=== PATIENT | male | born 1935 | race Asian ===

== ENCOUNTER 2017-09-05 17:06 | Emergency (ER) | payer OTHER ==
[~2017-09-05] VITALS: Ht 167.6 cm; Wt 52.7 kg
[~2017-09-05 17:06] MED LIST: ASPI-825 PO; SIMV10TA6 PO; TERA2CAP4 PO; [UNRECOGNIZED DRUG - REMARK]
[2017-09-05 18:09] LABS: BASOPHILS % (AUTO) 0.1 % (0.0-2.0); EOSINOPHILS % (AUTO) 0.3 % (1.0-6.0); HEMATOCRIT 35.9 % (41-53); HEMOGLOBIN 12.1 g/dL (13.5-17.5); LYMPHOCYTES # (AUTO) 0.5 K/uL (1.0-4.8); LYMPHOCYTES % (AUTO) 6.1 % (22.0-44.0); MEAN CORPUSCULAR HEMOGLOBIN 30.7 pg (26.0-34.0); MEAN CORPUSCULAR HGB CONC 33.8 G/dL (31.0-37.0); MEAN CORPUSCULAR VOLUME 91 fL (80-100); MONOCYTES # (AUTO) 0.4 K/uL (0.1-1.0); MONOCYTES % (AUTO) 4.5 % (2.0-9.0); NEUTROPHILS # (AUTO) 8.1 K/uL (1.8-7.7); PLATELET COUNT (AUTO) 269 K/uL (150-450); RED BLOOD CELL COUNT(AUTO) 3.95 MIL/uL (4.50-5.90); RED CELL DISTRIBUTION WIDTH 13.6 % (11.5-14.5); WHITE BLOOD COUNT (AUTO) 9.1 K/uL (4.5-11.0)
[2017-09-05 18:19] LABS: CALCIUM, TOTAL 9.5 mg/dL (8.8-10.5); CREATININE 1.29 mg/dL (0.60-1.30); POTASSIUM 3.5 mmol/L (3.5-5.1)
[2017-09-05 18:26] LABS: ALBUMIN 3.8 g/dL (3.4-5.0); BILIRUBIN,TOTAL 0.4 mg/dL (0.1-1.0); TOTAL PROTEIN, SERUM 7.7 g/dL (6.4-8.2)
[2017-09-05 18:54] LABS: GLUCOSE, URINE (UA) NEGATIVE (NEGATIVE); KETONES,URINE NEGATIVE (NEGATIVE); LEUKOCYTE ESTERASE ,URINE SMALL (NEGATIVE); OCCULT BLOOD,URINE LARGE (NEGATIVE); PH,URINE 5.5 (5.0-8.0); PROTEIN,URINE NEGATIVE (NEGATIVE)
[2017-09-05 18:58] LABS: ADD UA MICROSCOPIC YES; APPEARANCE,URINE SLIGHTLY CLOUDY (CLEAR)
[2017-09-05 19:01] VITALS: BP 134/78
[2017-09-05 19:05] LABS: RBC,URINE 26-50 /HPF (0-2)
[2017-09-05] MEDS ORDERED: CIPROFLOXACIN HCL 250 MG TABLET PO ONE (19:45)
[2017-09-05] MEDS ORDERED: TAMSULOSIN HCL 0.4 MG CAPSULE PO ONE (19:45)
== END 2017-09-05 20:15 | disposition home or self-care (01) ==
LOC: EMS 17:12
DX: N39.0 Urinary tract infection, site not specified (principal); E78.00 Pure hypercholesterolemia, unspecified; I10 Essential (primary) hypertension
CPT/HCPCS: 51702; 87086; 99284

== ENCOUNTER 2017-10-09 09:48 | Inpatient (IN) | payer OTHER, MEDICAID ==
[~2017-10-09] VITALS: Ht 167.6 cm; Wt 52.9 kg
[~2017-10-09 09:48] MED LIST changes: -[UNRECOGNIZED DRUG - REMARK]
[2017-10-09 11:20] LABS: BASOPHILS # (AUTO) 0.02 K/uL (0.00-0.20); BASOPHILS % (AUTO) 0.2 % (0.0-2.0); EOSINOPHILS # (AUTO) 0.01 K/uL (0.00-0.70); EOSINOPHILS % (AUTO) 0.16 % (1.0-6.0); HEMATOCRIT 37.6 % (41-53); HEMOGLOBIN 12.3 g/dL (13.5-17.5); LYMPHOCYTES # (AUTO) 0.8 K/uL (1.0-4.8); LYMPHOCYTES % (AUTO) 9.7 % (22.0-44.0); MEAN CORPUSCULAR HGB CONC 32.8 G/dL (31.0-37.0); MEAN CORPUSCULAR VOLUME 91 fL (80-100); MONOCYTES # (AUTO) 0.2 K/uL (0.1-1.0); MONOCYTES % (AUTO) 2.3 % (2.0-9.0); NEUTROPHILS # (AUTO) 6.9 K/uL (1.8-7.7); PLATELET COUNT (AUTO) 262 K/uL (150-450); RED BLOOD CELL COUNT(AUTO) 4.12 MIL/uL (4.50-5.90); RED CELL DISTRIBUTION WIDTH 13.8 % (11.5-14.5)
[2017-10-09 11:23] LABS: NEUTROPHILS % (AUTO) 87.6 % (40.0-70.0)
[2017-10-09 11:31] LABS: ANION GAP 10 mmol/L (8-16); CALCIUM, TOTAL 8.9 mg/dL (8.8-10.5); CARBON DIOXIDE 27 mmol/L (22-29); CHLORIDE 94 mmol/L (98-107); GLOMERULAR FILTR. RATE CALC 58 mL/min (>60); GLUCOSE,RANDOM 108 mg/dL (70-110); POTASSIUM 4.4 mmol/L (3.5-5.1); SODIUM SERUM 131 mmol/L (136-145); UREA NITROGEN, BLOOD 22 mg/dL (7-18)
[2017-10-09 11:32] LABS: PROTHROMBIN TIME 10.8 SEC (9.4-11.6)
[2017-10-09 11:38] LABS: ALANINE AMINOTRANSFERASE 64 U/L (12-78); ALBUMIN 3.2 g/dL (3.4-5.0); ALKALINE PHOSPHATASE 81 U/L (46-116); ASPARTATE AMINOTRANSFERASE 58 U/L (15-37); BILIRUBIN,TOTAL 0.9 mg/dL (0.1-1.0); CREATINE KINASE, TOTAL 50 U/L (39-308); TOTAL PROTEIN, SERUM 7.1 g/dL (6.4-8.2)
[2017-10-09 11:45] LABS: B-TYPE NATRIURETIC PEPTIDE 17 pg/mL (0-100)
[2017-10-09 13:16] LABS: LIPASE 430 U/L (73-393)
[2017-10-09 13:30] LABS: APPEARANCE,URINE TURBID (CLEAR); GLUCOSE, URINE (UA) NEGATIVE (NEGATIVE); KETONES,URINE 15 mg/dL (NEGATIVE); LEUKOCYTE ESTERASE ,URINE SMALL (NEGATIVE); NITRATE,URINE NEGATIVE (NEGATIVE); OCCULT BLOOD,URINE NEGATIVE (NEGATIVE); PROTEIN,URINE POS 1+ (NEGATIVE)
[2017-10-09 13:54] LABS: BILIRUBIN,URINE PRELIM. POSITIVE (NEGATIVE)
[2017-10-09 13:57] LABS: RBC,URINE None Seen /HPF (0-2)
[2017-10-09 13:59] LABS: BACTERIA,URINE Moderate /HPF (None Seen)
[2017-10-09 14:00] LABS: CALCIUM OXALATE CRYSTALS,UR Few /LPF (None Seen); TRANSITIONAL EPI CELLS,URINE Rare /LPF (None Seen)
[2017-10-09] MEDS ORDERED: IOVERSOL 320 MG/ML 100 ML VIAL ONE (14:37)
[2017-10-09 14:52] LABS: INFLUENZA TYPE A NEGATIVE FOR TYPE A (NEGATIVE); INFLUENZA TYPE B NEGATIVE FOR TYPE B (NEGATIVE)
[2017-10-09] MEDS ORDERED: 0.9% SODIUM CHLORIDE 10 ML SYRINGE IVP PRN (16:30)
[2017-10-09] MEDS ORDERED: ONDANSETRON HCL 4 MG/2 ML VIAL IVP PRN ×2 (16:30→20:15)
[2017-10-09] MEDS ORDERED: CeFAZolin 1 GM/DEXTROSE 50 ML IV ONE (16:30)
[2017-10-09] MEDS ORDERED: ACETAMINOPHEN 325 MG TABLET PO PRN ×2 (16:30→20:15)
[2017-10-09 19:17] VITALS: BP 144/55
[2017-10-09] MEDS ORDERED: ZOLPIDEM TARTRATE 5 MG TABLET PO PRN (20:15)
[2017-10-09] MEDS ORDERED: SODIUM CHLORIDE 0.9% 1,000 ML IV ONE (20:15)
[2017-10-09] MEDS ORDERED: MAGNESIUM HYDROXIDE SUSPENSION 30 ML UDCUP PO PRN (20:15)
[2017-10-09] MEDS ORDERED: BISACODYL 10 MG RECTAL RECTAL SUPPOSITORY PR PRN (20:15)
[2017-10-09] MEDS: DOCUSATE SODIUM 100 MG CAPSULE PO SCH (21:16)
[2017-10-09] MEDS ORDERED: FINA5TAB41 PO (22:14)
[2017-10-09] MEDS ORDERED: TAMS0.4C32 PO (22:15)
[2017-10-09] MEDS ORDERED: INFLUENZA VIRUS VACCINE QVS 2017-18 (3YR+)/PF 60 MCG/0.5 ML SYRINGE IM ONE (23:45)
[2017-10-10 00:12] VITALS: BP 120/66
[2017-10-10] MEDS: HEPARIN SODIUM,PORCINE 5,000 UNITS/ML VIAL SQ SCH ×3 (00:16→16:00)
[2017-10-10 04:00] VITALS: BP 123/69
[2017-10-10 06:18] LABS: PROTHROMBIN TIME 10.9 SEC (9.4-11.6)
[2017-10-10 07:49] VITALS: BP 134/70
[2017-10-10] MEDS: SIMVASTATIN 10 MG TABLET PO SCH (08:19)
[2017-10-10] MEDS: DOCUSATE SODIUM 100 MG CAPSULE PO SCH ×2 (08:19→21:00)
[2017-10-10] MEDS: PANTOPRAZOLE SODIUM 40 MG DR TABLET PO SCH (08:19)
[2017-10-10 12:00] VITALS: BP_SYST 107; BP_SYST 118; BP_DIAS 54; BP_DIAS 63
[2017-10-10] MEDS ORDERED: SODIUM CHLORIDE 0.9% 0 ML IV ONE (13:52)
[2017-10-10] MEDS ORDERED: RINGERS SOLUTION,LACTATED 1,000 ML IV ONE ×2 (13:52→16:00)
[2017-10-10] MEDS ORDERED: HEPARIN SODIUM 1000 UNITS/NS 0 ML ONE (14:18)
[2017-10-10] MEDS ORDERED: HEPARIN SODIUM 1000 UNITS/NS 500 ML ONE (14:28)
[2017-10-10 17:16] LABS: ABG A-A DIFF O2 25.6 mmHg (10-20.0); ABG BASE EXCESS -7.4 mmol/L (-2.0-3.0); ABG CARBOXYHEMOGLOBIN 0.7 % (0.0-1.5); ABG HCO3 19.3 mmol/L (22.0-26.0); ABG METHEMOGLOBIN 0.2 % (0.0-1.5); ABG OXYGEN CONTENT 15.8 mL/dL (15.0-23.0); ABG OXYGEN SATURATION 97.7 % (95.0-98.0); ABG OXYHEMOGLOBIN 96.8 % (94.0-100.0); ABG PCO2 29 mmHg (35-45); ABG PH 7.402 (7.35-7.450); ABG TOTAL HEMOGLOBIN 11.5 G/dL (12.0-18.0); PO2, ARTERIAL BG 90.3 mmHg (71.0-79.0); SITE, BLOOD GAS ARTERIAL LINE; SOURCE, BLOOD GAS ARTERIAL
[2017-10-10] MEDS ORDERED: CefoTEtan DISOD 2 GM/DEXTROSE 50 ML IV ONE (20:15)
[2017-10-10] MEDS ORDERED: PROPOFOL 1000 MG/ISO-OSM 100 ML IV ONE (22:37)
[2017-10-10] MEDS ORDERED: SODIUM CHLORIDE 0.9% 250 ML IV ONE (22:38)
[2017-10-10] MEDS ORDERED: SODIUM CHLORIDE 0.9% 250 ML IV SCH (22:45)
[2017-10-10] MEDS: SODIUM CHLORIDE 0.9% 1,000 ML IV SCH (22:53)
[2017-10-10] MEDS ORDERED: ONDANSETRON HCL 4 MG/2 ML VIAL IVP PRN (23:15)
[2017-10-10] MEDS ORDERED: HYDROmorphone 2 MG/ML SYRINGE IVP PRN (23:15)
[2017-10-10 23:36] LABS: ABG A-A DIFF O2 65.1 mmHg (10-20.0); ABG BASE EXCESS -9.5 mmol/L (-2.0-3.0); ABG CARBOXYHEMOGLOBIN 0.8 % (0.0-1.5); ABG HCO3 17.9 mmol/L (22.0-26.0); ABG METHEMOGLOBIN 0.3 % (0.0-1.5); ABG OXYGEN CONTENT 18.1 mL/dL (15.0-23.0); ABG OXYGEN SATURATION 99.9 % (95.0-98.0); ABG OXYHEMOGLOBIN 98.8 % (94.0-100.0); ABG PCO2 30 mmHg (35-45); ABG TOTAL HEMOGLOBIN 12.6 G/dL (12.0-18.0); PO2, ARTERIAL BG 257.9 mmHg (71.0-79.0); SOURCE, BLOOD GAS ARTERIAL; TEMPERATURE, FAHRENHEIT, BG 98.6 FAHREN (96.0-98.6)
[2017-10-10 23:37] LABS: O2 DEVICE,BLOOD GAS VENTILATOR (ROOM AIR); PEEP,BG 5 cm H2O; SITE, BLOOD GAS ARTERIAL LINE; VT, ABG 500 ml
[2017-10-11] VITALS (8 sets, daily range): BP systolic 108–152; BP diastolic 52–94
[2017-10-11] MEDS: ACETAMINOPHEN 650 MG/ISO-OSM 65 ML IV SCH ×3 (00:11→14:53)
[2017-10-11] MEDS: HEPARIN SODIUM,PORCINE 5,000 UNITS/ML VIAL SQ SCH ×3 (00:12→15:00)
[2017-10-11] MEDS: PROPOFOL 1000 MG/ISO-OSM 100 ML IV PRN ×2 (00:48→07:14)
[2017-10-11 05:20] LABS: EOSINOPHILS % (AUTO) 0.03 % (1.0-6.0); HEMATOCRIT 36.6 % (41-53); LYMPHOCYTES # (AUTO) 0.4 K/uL (1.0-4.8); LYMPHOCYTES % (AUTO) 3.1 % (22.0-44.0); MEAN CORPUSCULAR HEMOGLOBIN 30.2 pg (26.0-34.0); MEAN CORPUSCULAR HGB CONC 32.8 G/dL (31.0-37.0); MEAN CORPUSCULAR VOLUME 92 fL (80-100); MONOCYTES # (AUTO) 0.3 K/uL (0.1-1.0); MONOCYTES % (AUTO) 2.3 % (2.0-9.0); NEUTROPHILS # (AUTO) 13.5 K/uL (1.8-7.7); PLATELET COUNT (AUTO) 280 K/uL (150-450); RED BLOOD CELL COUNT(AUTO) 3.97 MIL/uL (4.50-5.90); RED CELL DISTRIBUTION WIDTH 14.2 % (11.5-14.5)
[2017-10-11 05:22] LABS: NEUTROPHILS % (AUTO) 94.5 % (40.0-70.0)
[2017-10-11] MEDS ORDERED: ONDANSETRON HCL 4 MG/2 ML VIAL IVP ONE (05:29)
[2017-10-11] MEDS ORDERED: METOCLOPRAMIDE HCL 5 MG/ML 2 ML VIAL IVP ONE (05:29)
[2017-10-11] MEDS ORDERED: PROPOFOL 1% 20 ML VIAL IVP ONE (05:29)
[2017-10-11] MEDS ORDERED: ROCURONIUM BROMIDE 10 MG/ML 5 ML VIAL IVP ONE (05:29)
[2017-10-11] MEDS ORDERED: CefoTEtan DISODIUM 1 GM/VIAL IVP ONE (05:29)
[2017-10-11] MEDS ORDERED: DEXAMETHASONE SOD PHOS 4 MG/ML VIAL IVP ONE (05:29)
[2017-10-11] MEDS ORDERED: FentaNYL CITRATE-PF 100 MCG/2 ML VIAL IVP ONE (05:29)
[2017-10-11] MEDS ORDERED: MIDAZOLAM HCL 2 MG/2 ML VIAL IVP ONE (05:29)
[2017-10-11] MEDS ORDERED: SUCCINYLCHOLINE CHLORIDE 20 MG/ML 10 ML VIAL IVP ONE (05:29)
[2017-10-11] MEDS ORDERED: LIDOCAINE HCL/PF 2% 5 ML VIAL INJ ONE (05:29)
[2017-10-11 05:31] LABS: ANION GAP 16 mmol/L (8-16); CALCIUM, TOTAL 7.9 mg/dL (8.8-10.5); CARBON DIOXIDE 17 mmol/L (22-29); CHLORIDE 101 mmol/L (98-107); CREATININE 0.84 mg/dL (0.60-1.30); GLOMERULAR FILTR. RATE CALC > 60 mL/min (>60); GLUCOSE,RANDOM 112 mg/dL (70-110); POTASSIUM 4.3 mmol/L (3.5-5.1); SODIUM SERUM 134 mmol/L (136-145); UREA NITROGEN, BLOOD 15 mg/dL (7-18)
[2017-10-11] MEDS: SODIUM CHLORIDE 0.9% 1,000 ML IV SCH ×2 (07:16→19:37)
[2017-10-11] MEDS ORDERED: HEPARIN SODIUM,PORCINE 5,000 UNITS/ML VIAL SQ SCH (08:00)
[2017-10-11] MEDS: SIMVASTATIN 10 MG TABLET PO SCH (08:03)
[2017-10-11] MEDS: DOCUSATE SODIUM 100 MG CAPSULE PO SCH ×2 (08:03→19:36)
[2017-10-11] MEDS: PANTOPRAZOLE SODIUM 40 MG DR TABLET PO SCH (08:03)
[2017-10-11 15:41] LABS: ABG A-A DIFF O2 63.3 mmHg (10-20.0); ABG BASE EXCESS -8.5 mmol/L (-2.0-3.0); ABG CARBOXYHEMOGLOBIN 0.6 % (0.0-1.5); ABG HCO3 18.6 mmol/L (22.0-26.0); ABG METHEMOGLOBIN 0.3 % (0.0-1.5); ABG OXYGEN CONTENT 16.8 mL/dL (15.0-23.0); ABG OXYGEN SATURATION 99.6 % (95.0-98.0); ABG OXYHEMOGLOBIN 98.7 % (94.0-100.0); ABG PCO2 29 mmHg (35-45); ABG PH 7.373 (7.35-7.450); ABG TOTAL HEMOGLOBIN 11.8 G/dL (12.0-18.0); PO2, ARTERIAL BG 188.1 mmHg (71.0-79.0); SOURCE, BLOOD GAS ARTERIAL; TEMPERATURE, FAHRENHEIT, BG 98.6 FAHREN (96.0-98.6)
[2017-10-11 15:42] LABS: O2 DEVICE,BLOOD GAS VENTILATOR (ROOM AIR); SITE, BLOOD GAS ARTERIAL LINE; VENT MODE, BG SPONTANEOUS (ROOM AIR)
[2017-10-11 15:43] LABS: CPAP, BG 0 cm H2O; PEEP,BG 0 cm H2O; PRESSURE SUPPORT, BG 8 cm H2O; SPONTANEOUS VT, BG 486 ml
[2017-10-12] MEDS: HEPARIN SODIUM,PORCINE 5,000 UNITS/ML VIAL SQ SCH ×3 (02:13→17:05)
[2017-10-12] MEDS: MORPHINE SULFATE 2 MG/ML SYRINGE IVP PRN (03:51)
[2017-10-12 04:34] VITALS: BP 122/67
[2017-10-12 08:07] VITALS: BP 142/65
[2017-10-12 08:30] LABS: B-TYPE NATRIURETIC PEPTIDE 21 pg/mL (0-100)
[2017-10-12 08:39] LABS: ANION GAP 7 mmol/L (8-16); CALCIUM, TOTAL 7.8 mg/dL (8.8-10.5); CARBON DIOXIDE 25 mmol/L (22-29); CHLORIDE 105 mmol/L (98-107); CREATINE KINASE MB 1.9 ng/mL (0-5); CREATINE KINASE, TOTAL 101 U/L (39-308); CREATININE 0.89 mg/dL (0.60-1.30); GLOMERULAR FILTR. RATE CALC > 60 mL/min (>60); GLUCOSE,RANDOM 104 mg/dL (70-110); POTASSIUM 4.1 mmol/L (3.5-5.1); SODIUM SERUM 137 mmol/L (136-145); UREA NITROGEN, BLOOD 16 mg/dL (7-18)
[2017-10-12] MEDS: DOCUSATE SODIUM 100 MG CAPSULE PO SCH ×2 (08:39→21:00)
[2017-10-12] MEDS: PANTOPRAZOLE SODIUM 40 MG DR TABLET PO SCH (08:39)
[2017-10-12] MEDS: SIMVASTATIN 10 MG TABLET PO SCH (08:39)
[2017-10-12] MEDS: SODIUM CHLORIDE 0.9% 1,000 ML IV SCH (10:55)
[2017-10-12 11:56] VITALS: BP 120/61
[2017-10-12 15:47] VITALS: BP 127/72
[2017-10-12 19:18] VITALS: BP 133/72
[2017-10-13] VITALS (7 sets, daily range): BP systolic 118–133; BP diastolic 65–73
[2017-10-13] MEDS: HEPARIN SODIUM,PORCINE 5,000 UNITS/ML VIAL SQ SCH ×3 (00:50→17:10)
[2017-10-13] MEDS: SODIUM CHLORIDE 0.9% 1,000 ML IV SCH ×2 (02:43→17:10)
[2017-10-13] MEDS: DOCUSATE SODIUM 100 MG CAPSULE PO SCH (09:25)
[2017-10-13] MEDS: SIMVASTATIN 10 MG TABLET PO SCH (09:25)
[2017-10-13] MEDS: PANTOPRAZOLE SODIUM 40 MG DR TABLET PO SCH (09:25)
[2017-10-13 09:26] LABS: EOSINOPHILS # (AUTO) 0.03 K/uL (0.00-0.70); EOSINOPHILS % (AUTO) 0.19 % (1.0-6.0); HEMOGLOBIN 9.4 g/dL (13.5-17.5); LYMPHOCYTES # (AUTO) 3.5 K/uL (1.0-4.8); LYMPHOCYTES % (AUTO) 26.2 % (22.0-44.0); MEAN CORPUSCULAR HEMOGLOBIN 30.2 pg (26.0-34.0); MEAN CORPUSCULAR HGB CONC 33.4 G/dL (31.0-37.0); MEAN CORPUSCULAR VOLUME 91 fL (80-100); MONOCYTES # (AUTO) 0.3 K/uL (0.1-1.0); MONOCYTES % (AUTO) 2.6 % (2.0-9.0); NEUTROPHILS # (AUTO) 9.5 K/uL (1.8-7.7); NEUTROPHILS % (AUTO) 71.1 % (40.0-70.0); PLATELET COUNT (AUTO) 201 K/uL (150-450); RED BLOOD CELL COUNT(AUTO) 3.09 MIL/uL (4.50-5.90); RED CELL DISTRIBUTION WIDTH 14.6 % (11.5-14.5)
[2017-10-13 09:39] LABS: ANION GAP 8 mmol/L (8-16); CALCIUM, TOTAL 7.8 mg/dL (8.8-10.5); CARBON DIOXIDE 25 mmol/L (22-29); CHLORIDE 105 mmol/L (98-107); CREATININE 0.62 mg/dL (0.60-1.30); GLOMERULAR FILTR. RATE CALC > 60 mL/min (>60); GLUCOSE,RANDOM 84 mg/dL (70-110); POTASSIUM 3.5 mmol/L (3.5-5.1); SODIUM SERUM 138 mmol/L (136-145); UREA NITROGEN, BLOOD 11 mg/dL (7-18)
[2017-10-14] MEDS: DOCUSATE SODIUM 100 MG CAPSULE PO SCH ×3 (00:26→21:15)
[2017-10-14] MEDS: HEPARIN SODIUM,PORCINE 5,000 UNITS/ML VIAL SQ SCH ×3 (00:26→16:09)
[2017-10-14 03:27] VITALS: BP 136/75
[2017-10-14] MEDS: HYDROCODONE/ACETAMINOPHEN 5-325 MG TABLET PO PRN (04:08)
[2017-10-14 07:32] LABS: CARBON DIOXIDE 27 mmol/L (22-29); CREATININE 0.67 mg/dL (0.60-1.30); GLOMERULAR FILTR. RATE CALC > 60 mL/min (>60); GLUCOSE,RANDOM 83 mg/dL (70-110); UREA NITROGEN, BLOOD 11 mg/dL (7-18)
[2017-10-14 07:44] LABS: ANION GAP 9 mmol/L (8-16); CHLORIDE 104 mmol/L (98-107); POTASSIUM 3.4 mmol/L (3.5-5.1); SODIUM SERUM 140 mmol/L (136-145)
[2017-10-14 07:50] LABS: EOSINOPHILS % (AUTO) 0.2 % (1.0-6.0); HEMATOCRIT 27.1 % (41-53); HEMOGLOBIN 9.1 g/dL (13.5-17.5); LYMPHOCYTES # (AUTO) 0.5 K/uL (1.0-4.8); LYMPHOCYTES % (AUTO) 3.5 % (22.0-44.0); MEAN CORPUSCULAR HEMOGLOBIN 30.3 pg (26.0-34.0); MEAN CORPUSCULAR HGB CONC 33.4 G/dL (31.0-37.0); MEAN CORPUSCULAR VOLUME 91 fL (80-100); MONOCYTES # (AUTO) 0.6 K/uL (0.1-1.0); PLATELET COUNT (AUTO) 166 K/uL (150-450); RED BLOOD CELL COUNT(AUTO) 2.99 MIL/uL (4.50-5.90); RED CELL DISTRIBUTION WIDTH 14.8 % (11.5-14.5)
[2017-10-14 08:03] LABS: NEUTROPHILS % (AUTO) 92.3 % (40.0-70.0)
[2017-10-14 08:10] VITALS: BP 107/65
[2017-10-14] MEDS: SODIUM CHLORIDE 0.9% 1,000 ML IV SCH (08:32)
[2017-10-14] MEDS: MORPHINE SULFATE 2 MG/ML SYRINGE IVP PRN (08:32)
[2017-10-14] MEDS: SIMVASTATIN 10 MG TABLET PO SCH (08:42)
[2017-10-14] MEDS: PANTOPRAZOLE SODIUM 40 MG DR TABLET PO SCH (08:42)
[2017-10-14 09:32] LABS: B-TYPE NATRIURETIC PEPTIDE 49 pg/mL (0-100)
[2017-10-14] MEDS ORDERED: POTASSIUM CHLORIDE 20 MEQ ER TABLET PO ONE (10:30)
[2017-10-14 11:30] VITALS: BP 109/67
[2017-10-14] MEDS: PIPERACILLIN/TAZO 3.375 GM/D5W 50 ML IV SCH ×2 (12:44→16:09)
[2017-10-14 15:29] VITALS: BP 118/68
[2017-10-14 15:29] LABS: APPEARANCE,URINE CLEAR (CLEAR); GLUCOSE, URINE (UA) NEGATIVE (NEGATIVE); KETONES,URINE >=80 mg/dL (NEGATIVE); LEUKOCYTE ESTERASE ,URINE NEGATIVE (NEGATIVE); NITRATE,URINE NEGATIVE (NEGATIVE); OCCULT BLOOD,URINE SMALL (NEGATIVE); PROTEIN,URINE POS 1+ (NEGATIVE); UROBILINOGEN,URINE 0.2 mg/dL (<=1.0)
[2017-10-14 15:38] LABS: BILIRUBIN,URINE PRELIM. POSITIVE (NEGATIVE)
[2017-10-14 17:35] LABS: BACTERIA,URINE Rare /HPF (None Seen); SQUAMOUS EPITHELIAL CELL,UR Few /LPF (None Seen); WBC,URINE 0-2 /HPF (0-5)
[2017-10-14 19:32] VITALS: BP 109/63
[2017-10-14 22:35] VITALS: BP 112/61
[2017-10-15] MEDS: PIPERACILLIN/TAZO 3.375 GM/D5W 50 ML IV SCH ×4 (01:06→18:09)
[2017-10-15] MEDS: HEPARIN SODIUM,PORCINE 5,000 UNITS/ML VIAL SQ SCH ×3 (01:07→16:55)
[2017-10-15] MEDS: HYDROCODONE/ACETAMINOPHEN 5-325 MG TABLET PO PRN (01:18)
[2017-10-15 04:37] VITALS: BP 110/62
[2017-10-15] MEDS: SODIUM CHLORIDE 0.9% 1,000 ML IV SCH ×2 (05:28→21:41)
[2017-10-15 07:47] VITALS: BP 114/62
[2017-10-15] MEDS: DOCUSATE SODIUM 100 MG CAPSULE PO SCH ×2 (07:56→21:41)
[2017-10-15] MEDS: PANTOPRAZOLE SODIUM 40 MG DR TABLET PO SCH (07:57)
[2017-10-15] MEDS: SIMVASTATIN 10 MG TABLET PO SCH (07:57)
[2017-10-15 10:31] LABS: BASOPHILS # (AUTO) 0.13 K/uL (0.00-0.20); BASOPHILS % (AUTO) 1.1 % (0.0-2.0); EOSINOPHILS # (AUTO) 0.02 K/uL (0.00-0.70); EOSINOPHILS % (AUTO) 0.14 % (1.0-6.0); HEMATOCRIT 25.1 % (41-53); HEMOGLOBIN 8.4 g/dL (13.5-17.5); LYMPHOCYTES # (AUTO) 0.6 K/uL (1.0-4.8); MEAN CORPUSCULAR HEMOGLOBIN 30.2 pg (26.0-34.0); MEAN CORPUSCULAR HGB CONC 33.3 G/dL (31.0-37.0); MEAN CORPUSCULAR VOLUME 91 fL (80-100); MONOCYTES # (AUTO) 0.5 K/uL (0.1-1.0); MONOCYTES % (AUTO) 4.2 % (2.0-9.0); NEUTROPHILS # (AUTO) 10.9 K/uL (1.8-7.7); PLATELET COUNT (AUTO) 262 K/uL (150-450); RED BLOOD CELL COUNT(AUTO) 2.77 MIL/uL (4.50-5.90); RED CELL DISTRIBUTION WIDTH 14.6 % (11.5-14.5)
[2017-10-15 10:36] LABS: NEUTROPHILS % (AUTO) 89.6 % (40.0-70.0)
[2017-10-15 11:20] VITALS: BP 111/61
[2017-10-15 16:33] VITALS: BP 114/67
[2017-10-15 18:12] LABS: GLUCOMETER DEV NAME(LOC) 6N 1E; GLUCOSE,POINT OF CARE 121 MG/DL (70-110)
[2017-10-15 19:40] VITALS: BP 115/66
[2017-10-16 00:42] VITALS: BP 130/64
[2017-10-16] MEDS: PIPERACILLIN/TAZO 3.375 GM/D5W 50 ML IV SCH ×5 (01:07→23:19)
[2017-10-16] MEDS: HEPARIN SODIUM,PORCINE 5,000 UNITS/ML VIAL SQ SCH ×4 (01:07→23:24)
[2017-10-16 04:43] VITALS: BP 131/72
[2017-10-16 07:57] LABS: BASOPHILS % (AUTO) 0.1 % (0.0-2.0); EOSINOPHILS % (AUTO) 0.1 % (1.0-6.0); HEMATOCRIT 24.4 % (41-53); HEMOGLOBIN 8.1 g/dL (13.5-17.5); LYMPHOCYTES # (AUTO) 0.8 K/uL (1.0-4.8); LYMPHOCYTES % (AUTO) 4.8 % (22.0-44.0); MEAN CORPUSCULAR HEMOGLOBIN 30.1 pg (26.0-34.0); MEAN CORPUSCULAR HGB CONC 33.3 G/dL (31.0-37.0); MEAN CORPUSCULAR VOLUME 90 fL (80-100); MONOCYTES # (AUTO) 0.6 K/uL (0.1-1.0); MONOCYTES % (AUTO) 3.6 % (2.0-9.0); NEUTROPHILS # (AUTO) 15.6 K/uL (1.8-7.7); PLATELET COUNT (AUTO) 193 K/uL (150-450); RED CELL DISTRIBUTION WIDTH 14.9 % (11.5-14.5)
[2017-10-16 08:08] LABS: NEUTROPHILS % (AUTO) 91.4 % (40.0-70.0)
[2017-10-16] MEDS: PANTOPRAZOLE SODIUM 40 MG DR TABLET PO SCH (08:37)
[2017-10-16] MEDS: DOCUSATE SODIUM 100 MG CAPSULE PO SCH ×2 (08:37→21:00)
[2017-10-16] MEDS: SIMVASTATIN 10 MG TABLET PO SCH (08:37)
[2017-10-16 11:45] VITALS: BP 109/59
[2017-10-16] MEDS: SODIUM CHLORIDE 0.9% 1,000 ML IV SCH (15:19)
[2017-10-16 15:54] VITALS: BP 108/70
[2017-10-16 20:06] VITALS: BP 93/49
[2017-10-16 23:54] VITALS: BP 112/60
[2017-10-17] MEDS: PIPERACILLIN/TAZO 3.375 GM/D5W 50 ML IV SCH ×3 (06:29→18:43)
[2017-10-17] MEDS: SODIUM CHLORIDE 0.9% 1,000 ML IV SCH ×2 (06:30→20:06)
[2017-10-17 07:55] VITALS: BP 118/63
[2017-10-17] MEDS: HEPARIN SODIUM,PORCINE 5,000 UNITS/ML VIAL SQ SCH ×2 (08:29→18:43)
[2017-10-17] MEDS: DOCUSATE SODIUM 100 MG CAPSULE PO SCH ×2 (08:30→20:22)
[2017-10-17] MEDS: PANTOPRAZOLE SODIUM 40 MG DR TABLET PO SCH (08:30)
[2017-10-17] MEDS: SIMVASTATIN 10 MG TABLET PO SCH (08:30)
[2017-10-17 12:00] VITALS: BP 99/55
[2017-10-17 12:36] LABS: BASOPHILS # (AUTO) 0.04 K/uL (0.00-0.20); BASOPHILS % (AUTO) 0.3 % (0.0-2.0); EOSINOPHILS # (AUTO) 0.03 K/uL (0.00-0.70); EOSINOPHILS % (AUTO) 0.21 % (1.0-6.0); HEMATOCRIT 21.1 % (41-53); LYMPHOCYTES # (AUTO) 0.6 K/uL (1.0-4.8); LYMPHOCYTES % (AUTO) 4.9 % (22.0-44.0); MEAN CORPUSCULAR HEMOGLOBIN 29.5 pg (26.0-34.0); MEAN CORPUSCULAR HGB CONC 33.4 G/dL (31.0-37.0); MEAN CORPUSCULAR VOLUME 88 fL (80-100); MONOCYTES # (AUTO) 0.3 K/uL (0.1-1.0); MONOCYTES % (AUTO) 2.9 % (2.0-9.0); NEUTROPHILS # (AUTO) 10.9 K/uL (1.8-7.7); PLATELET COUNT (AUTO) 361 K/uL (150-450); RED BLOOD CELL COUNT(AUTO) 2.38 MIL/uL (4.50-5.90); RED CELL DISTRIBUTION WIDTH 15.7 % (11.5-14.5)
[2017-10-17 12:38] LABS: NEUTROPHILS % (AUTO) 91.7 % (40.0-70.0)
[2017-10-17 16:20] VITALS: BP 139/65
[2017-10-17 18:51] LABS: ANION GAP 4 mmol/L (8-16); CALCIUM, TOTAL 7.7 mg/dL (8.8-10.5); CARBON DIOXIDE 32 mmol/L (22-29); CHLORIDE 104 mmol/L (98-107); CREATININE 0.74 mg/dL (0.60-1.30); GLOMERULAR FILTR. RATE CALC > 60 mL/min (>60); GLUCOSE,RANDOM 133 mg/dL (70-110); SODIUM SERUM 140 mmol/L (136-145); UREA NITROGEN, BLOOD 9 mg/dL (7-18)
[2017-10-17 19:00] LABS: POTASSIUM 2.9 mmol/L (3.5-5.1)
[2017-10-17 20:09] VITALS: BP 114/60
[2017-10-17] MEDS ORDERED: SODIUM CHLORIDE 0.9% 500 ML IV ONE (22:44)
[2017-10-17] MEDS ORDERED: POTASSIUM CHLORIDE 20 MEQ ER TABLET PO ONE (22:45)
[2017-10-17] MEDS ORDERED: POTASSIUM CHLORIDE 10% 40 MEQ/30 ML LIQUID UDCUP PO ONE (23:00)
[2017-10-17] MEDS: POTASSIUM CHL 10 MEQ/WATER 50 ML IV SCH (23:56)
[2017-10-18] VITALS (15 sets, daily range): BP systolic 98–156; BP diastolic 60–80
[2017-10-18] MEDS: PIPERACILLIN/TAZO 3.375 GM/D5W 50 ML IV SCH ×5 (01:00→23:48)
[2017-10-18] MEDS: HEPARIN SODIUM,PORCINE 5,000 UNITS/ML VIAL SQ SCH ×4 (01:01→23:49)
[2017-10-18] MEDS: POTASSIUM CHL 10 MEQ/WATER 50 ML IV SCH (01:33)
[2017-10-18] MEDS: SODIUM CHLORIDE 0.9% 1,000 ML IV SCH ×2 (03:58→10:24)
[2017-10-18 08:44] LABS: BASOPHILS # (AUTO) 0.07 K/uL (0.00-0.20); BASOPHILS % (AUTO) 0.7 % (0.0-2.0); EOSINOPHILS # (AUTO) 0.07 K/uL (0.00-0.70); EOSINOPHILS % (AUTO) 0.73 % (1.0-6.0); HEMOGLOBIN 8.8 g/dL (13.5-17.5); LYMPHOCYTES % (AUTO) 9.9 % (22.0-44.0); MEAN CORPUSCULAR HEMOGLOBIN 29.8 pg (26.0-34.0); MEAN CORPUSCULAR VOLUME 88 fL (80-100); MONOCYTES # (AUTO) 0.7 K/uL (0.1-1.0); MONOCYTES % (AUTO) 7.1 % (2.0-9.0); NEUTROPHILS # (AUTO) 8.4 K/uL (1.8-7.7); NEUTROPHILS % (AUTO) 81.5 % (40.0-70.0); PLATELET COUNT (AUTO) 330 K/uL (150-450); RED BLOOD CELL COUNT(AUTO) 2.96 MIL/uL (4.50-5.90); RED CELL DISTRIBUTION WIDTH 15.7 % (11.5-14.5)
[2017-10-18 08:52] LABS: ANION GAP 2 mmol/L (8-16); CALCIUM, TOTAL 7.8 mg/dL (8.8-10.5); CARBON DIOXIDE 32 mmol/L (22-29); CHLORIDE 105 mmol/L (98-107); CREATININE 0.61 mg/dL (0.60-1.30); GLOMERULAR FILTR. RATE CALC > 60 mL/min (>60); GLUCOSE,RANDOM 106 mg/dL (70-110); POTASSIUM 3.4 mmol/L (3.5-5.1); SODIUM SERUM 139 mmol/L (136-145); UREA NITROGEN, BLOOD 6 mg/dL (7-18)
[2017-10-18] MEDS: DOCUSATE SODIUM 100 MG CAPSULE PO SCH ×2 (09:57→20:53)
[2017-10-18] MEDS: PANTOPRAZOLE SODIUM 40 MG DR TABLET PO SCH (09:57)
[2017-10-18] MEDS: SIMVASTATIN 10 MG TABLET PO SCH (09:58)
[2017-10-19] MEDS: SODIUM CHLORIDE 0.9% 1,000 ML IV SCH ×2 (00:42→11:31)
[2017-10-19 04:31] VITALS: BP 100/55
[2017-10-19] MEDS: PIPERACILLIN/TAZO 3.375 GM/D5W 50 ML IV SCH ×2 (05:39→11:26)
[2017-10-19 07:49] VITALS: BP 109/59
[2017-10-19] MEDS: PANTOPRAZOLE SODIUM 40 MG DR TABLET PO SCH (08:34)
[2017-10-19] MEDS: SIMVASTATIN 10 MG TABLET PO SCH (08:34)
[2017-10-19] MEDS: DOCUSATE SODIUM 100 MG CAPSULE PO SCH (08:34)
[2017-10-19] MEDS: HEPARIN SODIUM,PORCINE 5,000 UNITS/ML VIAL SQ SCH (08:36)
[2017-10-19] MEDS ORDERED: MULTIVITAMINS WITH MINERALS, THERAPEUTIC TABLET PO SCH (09:00)
[2017-10-19 11:03] VITALS: BP 107/66
[2017-10-19 15:27] VITALS: BP 111/67
== END 2017-10-19 16:00 | DRG 221 ==
LOC: EMS 09:49 → 6N 17:28 → ICU 10-10 20:17 → 6N 10-11 18:20
PROVIDERS: ADMIT Internal Medicine; ATTEND Internal Medicine
PROC: 3E0234Z Introduction of Serum, Toxoid and Vaccine into Muscle, Percutaneous Approach (ICD-10-PCS; 2017-10-09)
PROC: 0DBL0ZZ Excision of Transverse Colon, Open Approach (ICD-10-PCS; principal; 2017-10-10 17:00)
PROC: 30233N1 Transfusion of Nonautologous Red Blood Cells into Peripheral Vein, Percutaneous Approach (ICD-10-PCS; 2017-10-17)
DX: C78.6 Secondary malignant neoplasm of retroperitoneum and peritoneum (principal); J96.00 Acute respiratory failure, unspecified whether with hypoxia or hypercapnia; E43 Unspecified severe protein-calorie malnutrition; E86.0 Dehydration; C18.9 Malignant neoplasm of colon, unspecified; E87.1 Hypo-osmolality and hyponatremia; I10 Essential (primary) hypertension; Z68.1 Body mass index [BMI] 19.9 or less, adult; E78.5 Hyperlipidemia, unspecified; E78.00 Pure hypercholesterolemia, unspecified; N40.1 Benign prostatic hyperplasia with lower urinary tract symptoms; N32.0 Bladder-neck obstruction; Z79.82 Long term (current) use of aspirin; Z23 Encounter for immunization
CPT/HCPCS: 71046; 74010; 74018; 74177; 82805; 82962; 83735; 86850; 86900; 86901; 86920; 87040; 87070; 87081; 87086; 87205; 87804; 88309; 88341; 88342; 93005; 93306; 94002; 94003; 96365; 97116; 97162; 97530; 99285; J0131; J0330; J0690; J1100; J1170; J1644; J2250; J2270; J2405; J2543; J2704; J2765; J3010; J3480; J3490; J7030; J7040; J7050; J7120; P9016

== ENCOUNTER 2017-11-12 00:03 | Emergency (ER) | payer OTHER, MEDICAID ==
[~2017-11-12] VITALS: Ht 167.6 cm; Wt 45.5 kg
[~2017-11-12 00:03] MED LIST changes: +FINA5TAB41 PO; +TAMS0.4C32 PO
[2017-11-12 03:05] LABS: APPEARANCE,URINE CLOUDY (CLEAR); BILIRUBIN,URINE NEGATIVE (NEGATIVE); GLUCOSE, URINE (UA) NEGATIVE (NEGATIVE); KETONES,URINE NEGATIVE (NEGATIVE); LEUKOCYTE ESTERASE ,URINE LARGE (NEGATIVE); NITRATE,URINE POSITIVE (NEGATIVE); OCCULT BLOOD,URINE LARGE (NEGATIVE); PH,URINE 6.5 (5.0-8.0); PROTEIN,URINE POS 1+ (NEGATIVE); UROBILINOGEN,URINE 0.2 mg/dL (<=1.0)
[2017-11-12 03:10] VITALS: BP 105/62
[2017-11-12 03:13] LABS: BACTERIA,URINE Moderate /HPF (None Seen); SQUAMOUS EPITHELIAL CELL,UR Few /LPF (None Seen)
[2017-11-12] MEDS ORDERED: CEPHALEXIN MONOHYDRATE 500 MG CAPSULE PO ONE (03:30)
== END 2017-11-12 03:45 | disposition home or self-care (01) ==
LOC: EMS 00:04
DX: T83.9XXA Unspecified complication of genitourinary prosthetic device, implant and graft, initial encounter (principal); N39.0 Urinary tract infection, site not specified; E78.00 Pure hypercholesterolemia, unspecified; I10 Essential (primary) hypertension; Z79.82 Long term (current) use of aspirin
CPT/HCPCS: 51702; 87086; 99284